=== PATIENT | male | born 1930 | race Caucasian/White ===

== ENCOUNTER 2016-09-09 02:03 | Inpatient (IN) | payer MEDICARE, OTHER ==
[~2016-09-09 02:03] MED LIST: ADULT LOW DOSE81 M1 PO; ALAVERT10 MG PO; ALDACTONE25 MG; AMIODARONE HCL200 MG; AMOXICILLIN875 MG PO; ASPIR 8181 M1 PO; ASPIR 8181 MG PO; ASPIRIN ENTERI325 MG; B-12500 MC1 PO; BAYER ASPIRIN325 MG PO; BETAPACE AF PO; BUFFERIN 81 MG81 MG PO; CARVEDILOL25 M1 PO; CARVEDILOL25 MG PO; CARVEDILOL6.25 MG PO; CELEBREX200 MG PO; COREG12.5 MG PO; COREG25 MG; COREG6.25 MG PO; COUMADIN1 MG PO; COUMADIN2.5 MG PO; COUMADIN3 M1 PO; COUMADIN3 MG PO; COUMADIN5 MG PO; COZAAR25 M1 PO; COZAAR25 MG PO; DIGOXIN125 MCG PO; DUONEB 2.5-0.5 M3 ML IH; EQL FISH OIL 1,1 CA1 PO; FEOSOL45 M1 PO; FEOSOL45 MG PO; FERROUS GL324 ( 36 ); FERROUS GL325 ( 36 ) PO; FERROUS GLUCONATE; FISH OIL1 CAP; FUROSEMIDE20 MG; FUROSEMIDE40 M2 PO; FUROSEMIDE40 MG; FUROSEMIDE40 MG PO; HYDROCODON-ACE1 EA17 PO; IRON PO; IRON1 TA1 PO; IRON325 M1 PO; KLOTRIX10 MEQ PO; LANOXIN125 MCG; LASIX20 MG PO; LEVOTHROID150 MCG PO; LEVOTHYROXINE88 MC2 PO; LEVOXYL75 MCG; LIPITOR10 MG PO; LISINOPRIL20 MG; LOSARTAN; LOSARTAN POTASS25 M1 PO; LOSARTAN POTASS25 MG PO; MUCINEX DM TABL1 BOX PO; MUCUS RELIEF400 MG PO; MULTI-DAY VITA1 EACH PO; NITRO-DUR1 P; NITRO-DUR1 P TD; NITROSTAT0.4 MG; NORVASC10 MG; NORVASC5 MG PO; OXYCODONE HCL5 MG PO; PACERONE200 MG PO; POTASSIUM CHLO10 MEQ PO; POTASSIUM CHLO20 ME3 PO; POTASSIUM CHLO20 MEQ PO; PRAVACHOL40 M1 PO; PRAVASTATIN SOD40 M1 PO; PRAVASTATIN SOD40 MG PO; PRINIVIL20 MG PO; PROTONIX40 MG PO; REQUIP1 MG PO; SIMVASTATIN80 MG PO; SINEMET PO; SORINE80 MG PO; SOTALOL120 MG PO; SOTALOL80 M1 PO; SPIRONOLACTONE25 MG PO; SYNTHROID100 MCG PO; SYNTHROID200 MCG PO; TESSALON PERLE100 MG PO; TYLENOL325 MG PO; VITAMIN B-12500 MC3 PO; VITAMIN B1250 MCG; VITAMIN B1250 MCG PO; VITAMIN B12500 MCG PO; ZOCOR20 MG PO; ZOCOR40 MG; ZOFRAN4 MG PO
[2016-09-09 02:44] LABS: BASO % 0.3 % (0-2); EOSINOPHIL ABSOLUTE COUNT 0.2 tho/cmm (0.0-0.7); HCT-HEMATOCRIT 37.4 % (36.0-53.5); HGB-HEMOGLOBIN 12.5 gm/dl (13.5-17.0); IMMATURE GRANULOCYTES ABSOLUTE 0.01 tho/cmm (0-0.03); IMMATURE GRANULOCYTES PERCENT 0.2 % (0-0.3); LYMPH % 18.2 % (20-45); MCH (MEAN CORPUSCULAR HGB) 32.4 pg (28.0-32.0); MCHC MEAN CORPUSCULAR HGB CONC 33.4 % (32.0-36.0); MCV (MEAN CELL VOLUME) 96.9 fl (82.0-96.0); MONO % 9.3 % (0-12); MONOCYTE ABSOLUTE COUNT 0.5 tho/cmm (0.0-1.2); PLATELET COUNT 111 tho/cmm (150-450); RED BLOOD COUNT 3.86 mil/cmm (4.40-5.70); RED CELL DISTRIBUTION WIDTH 14.3 % (12.4-16.4); WHITE BLOOD COUNT 5.7 tho/cmm (4.0-10.0)
[2016-09-09 02:57] LABS: ANION GAP 14 mmol/L (0-20); BLOOD UREA NITROGEN 28 mg/dl (6-24); CALCIUM 8.4 mg/dl (8.5-10.5); CARBON DIOXIDE-VENOUS 23 mmol/L (22-32); CHLORIDE 110 mmol/l (96-110); CREATININE 1.34 mg/dl (0.60-1.30); GLUCOSE 122 mg/dL (70-110); MAGNESIUM 2.3 mg/dl (1.8-2.6); POTASSIUM 4.1 mmol/L (3.7-5.1); SODIUM 143 mmol/L (135-145); eGFR VALUE FOR BLACK 55 mL/Min
[2016-09-09] MEDS ORDERED: COUMADIN PO (03:07)
[2016-09-09 03:24] LABS: INR 3.4 INR (0.9-1.1); PROTHROMBIN TIME 40.9 SECONDS (9.0-13.6)
[2016-09-09 05:59] LABS: TSH-THYROID STIMULATING HORM. 2.75 uIU/ml (0.40-3.80)
[2016-09-09] MEDS ORDERED: COUMADIN2.5 M1 PO (13:45)
[2016-09-10 13:57] LABS: INR 4.4 INR (0.9-1.1); PROTHROMBIN TIME 53.3 SECONDS (9.0-13.6)
[2016-09-11 06:22] LABS: INR 3.3 INR (0.9-1.1); PROTHROMBIN TIME 40.3 SECONDS (9.0-13.6)
[2016-09-11 13:01] LABS: BASO % 0.2 % (0-2); EOS % 1.3 % (0-7); EOSINOPHIL ABSOLUTE COUNT 0.1 tho/cmm (0.0-0.7); HGB-HEMOGLOBIN 13.2 gm/dl (13.5-17.0); IMMATURE GRANULOCYTES ABSOLUTE 0.04 tho/cmm (0-0.03); IMMATURE GRANULOCYTES PERCENT 0.4 % (0-0.3); LYMPH % 9.2 % (20-45); LYMPH ABSOLUTE COUNT 0.8 tho/cmm (0.8-4.5); MCH (MEAN CORPUSCULAR HGB) 32.3 pg (28.0-32.0); MCV (MEAN CELL VOLUME) 97.8 fl (82.0-96.0); MONO % 9.7 % (0-12); MONOCYTE ABSOLUTE COUNT 0.9 tho/cmm (0.0-1.2); NEUTROPHIL ABSOLUTE COUNT 7.3 tho/cmm (1.6-8.0); NEUTROPHIL-AUTOMATED 7.3 tho/cmm (1.6-8.0); NEUTROPHILS % 79.2 % (40-80); PLATELET COUNT 109 tho/cmm (150-450); RED BLOOD COUNT 4.09 mil/cmm (4.40-5.70); RED CELL DISTRIBUTION WIDTH 14.5 % (12.4-16.4)
[2016-09-11 13:08] LABS: BLOOD UREA NITROGEN 23 mg/dl (6-24); CALCIUM 8.4 mg/dl (8.5-10.5); CARBON DIOXIDE-VENOUS 24 mmol/L (22-32); CHLORIDE 105 mmol/l (96-110); GLUCOSE 153 mg/dL (70-110); SODIUM 139 mmol/L (135-145); eGFR VALUE FOR BLACK 52 mL/Min
[2016-09-11 13:27] LABS: WHITE BLOOD COUNT 9.2 tho/cmm (4.0-10.0)
[2016-09-11 13:29] LABS: ANION GAP 15 mmol/L (0-20)
[2016-09-11 13:30] LABS: MAGNESIUM 2.2 mg/dl (1.8-2.6); POTASSIUM 4.7 mmol/L (3.7-5.1)
[2016-09-11 17:59] LABS: URINE BILIRUBIN NEGATIVE (NEG); URINE BLOOD NEGATIVE (NEG); URINE GLUCOSE (UA) NEGATIVE (NEG); URINE KETONE NEGATIVE (NEG); URINE LEUKOCYTE ESTERASE NEGATIVE (NEG); URINE NITRITE NEGATIVE (NEG); URINE PROTEIN NEGATIVE (NEG)
[2016-09-11 18:03] LABS: URINE APPEARANCE CLEAR; URINE COLOR YELLOW
[2016-09-12 05:57] LABS: INR 2.6 INR (0.9-1.1)
[2016-09-12 06:22] LABS: PROTHROMBIN TIME 31.1 SECONDS (9.0-13.6)
[2016-09-13 05:21] LABS: PROTHROMBIN TIME 24.3 SECONDS (9.0-13.6)
[2016-09-13 20:02] LABS: ALB/GLOB RATIO 0.7 (0.8-2.0); ALBUMIN 2.8 g/dl (3.5-5.0); ALKALINE PHOSPHATASE 54 U/L (33-138); ALT/SGPT 16 U/L (12-78); BILIRUBIN,TOTAL 0.5 mg/dl (0.0-1.5); BLOOD UREA NITROGEN 21 mg/dl (6-24); CALCIUM 8.2 mg/dl (8.5-10.5); CARBON DIOXIDE-VENOUS 20 mmol/L (22-32); CHLORIDE 107 mmol/l (96-110); CREATININE 1.57 mg/dl (0.60-1.30); GLUCOSE 174 mg/dL (70-110); SODIUM 137 mmol/L (135-145); eGFR VALUE FOR BLACK 45 mL/Min
[2016-09-13 20:03] LABS: ANION GAP 14 mmol/L (0-20); AST/SGOT 15 U/L (10-40); POTASSIUM 4.4 mmol/L (3.7-5.1)
[2016-09-14 02:35] LABS: ANION GAP 15 mmol/L (0-20); BLOOD UREA NITROGEN 25 mg/dl (6-24); CALCIUM 8.1 mg/dl (8.5-10.5); CARBON DIOXIDE-VENOUS 22 mmol/L (22-32); CHLORIDE 104 mmol/l (96-110); GLUCOSE 184 mg/dL (70-110); SODIUM 137 mmol/L (135-145); eGFR VALUE FOR BLACK 41 mL/Min
[2016-09-14 06:10] LABS: INR 1.5 INR (0.9-1.1)
[2016-09-14 06:36] LABS: PROTHROMBIN TIME 17.4 SECONDS (9.0-13.6)
== END 2016-09-16 11:19 | disposition expired | DRG 309 ==
LOC: EDMED 02:03 → EMR2 04:22 → PCUA 05:23 → CCU 09-13 19:00 → 5WE 09-15 12:15
PROVIDERS: Emergency Medicine; Internal Medicine; Internal Medicine Cardiovascular Disease; Physician Assistant; Physician Assistant Medical; ADMIT Internal Medicine Clinical Cardiac Electrophysiology
PROC: 05HC33Z Insertion of Infusion Device into Left Basilic Vein, Percutaneous Approach (ICD-10-PCS; principal; 2016-09-13)
DX: I47.2 Ventricular tachycardia (principal); I13.0 Hypertensive heart and chronic kidney disease with heart failure and stage 1 through stage 4 chronic kidney disease, or unspecified chronic kidney disease; N17.9 Acute kidney failure, unspecified; Z99.81 Dependence on supplemental oxygen; I50.42 Chronic combined systolic (congestive) and diastolic (congestive) heart failure; Z66 Do not resuscitate; Z51.5 Encounter for palliative care; D64.9 Anemia, unspecified; N18.9 Chronic kidney disease, unspecified; I48.0 Paroxysmal atrial fibrillation; I73.9 Peripheral vascular disease, unspecified; R25.2 Cramp and spasm; E78.5 Hyperlipidemia, unspecified; G47.33 Obstructive sleep apnea (adult) (pediatric); I25.5 Ischemic cardiomyopathy; Z87.891 Personal history of nicotine dependence; Z79.82 Long term (current) use of aspirin; Z90.49 Acquired absence of other specified parts of digestive tract; Z95.820 Peripheral vascular angioplasty status with implants and grafts; Z79.01 Long term (current) use of anticoagulants; Z95.1 Presence of aortocoronary bypass graft; Z95.810 Presence of automatic (implantable) cardiac defibrillator
CPT/HCPCS: C1751; G8987-GO-CJ; G8988-GO-CI; J0282; J1170; J2060; J2250; J2270; J2405; J3475; J3480; J7030